=== PATIENT | male | born 1965 | race Caucasian/White ===

== ENCOUNTER 2022-08-21 22:59 | Emergency (ER) | payer OTHER, SELFPAY ==
[2022-08-21 23:15] VITALS: BP 131/78; PULSE 99; RESP 18; TEMP 37.2; O2SAT 97
[2022-08-22 00:09] VITALS: BP 118/83; PULSE 92; RESP 15; TEMP 36.7; O2SAT 97
--- NOTE | 2022-08-22 00:09 | PC.NURSE ---
Patient states he took Tylenol at 2330 1000mg for pain.
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
[2022-08-22 01:10] VITALS: BP 123/79; PULSE 84; RESP 15; O2SAT 96
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
[2022-08-22] MEDS: IBUPROFEN 400 MG TABLET 800 MG PO (01:48)
[2022-08-22] MEDS: methocarbamoL 750 MG TABLET 1500 MG PO (01:48)
[2022-08-22] MEDS: ACETAMINOPHEN 500 MG TABLET 1000 MG PO (01:48)
[2022-08-22 01:51] VITALS: BP 128/74; PULSE 74; RESP 16; O2SAT 99
== END 2022-08-22 01:53 | disposition home or self-care (01) ==
PROVIDERS: Emergency Provider Emergency Medicine
DX: M54.2 Cervicalgia (principal); W03.XXXA Other fall on same level due to collision with another person, initial encounter
CPT/HCPCS: 99283; A9270